=== PATIENT | male | born 1950 | race Caucasian/White ===

== ENCOUNTER 2022-01-18 16:01 | Emergency (ER) | payer OTHER ==
[~2022-01-18] VITALS: Ht 182.9 cm; Wt 77.1 kg
[~2022-01-18 16:01] MED LIST: AMOX500 PO; CEPH500 PO; CRUTCH4 USE; ERGO400 PO; HYDACE5 PO; MULVITMINF PO; OXYACE5T PO; OXYC5 PO; SULTRIDS PO
== END 2022-01-18 17:15 | disposition home or self-care (01) ==
LOC: ER 16:01
DX: M79.672 Pain in left foot (principal); F17.200 Nicotine dependence, unspecified, uncomplicated
CPT/HCPCS: 73620; 99283-25

== ENCOUNTER 2022-09-29 22:02 | Inpatient (IN) | payer OTHER ==
[~2022-09-29] VITALS: Ht 182.9 cm; Wt 69.5 kg
[2022-09-30 01:37] LABS: Albumin, Blood 2.1 g/dL (3.4-5.0); Albumin/Globulin Ratio 0.6 (0.8-1.8); Bilirubin, Total 0.7 mg/dL (0.1-1.0); Bun/Creatinine Ratio 15.1 (12.0-20.0); Calcium, Blood 7.8 mg/dL (8.5-10.1); Creatinine, Blood 0.99 mg/dL (0.60-1.20); Globulin, Blood 3.6 g/dL (2.2-4.0); Potassium, Blood 4.2 mmol/L (3.5-5.5); Total Protein, Blood 5.7 g/dL (6.4-8.2)
[2022-09-30 02:36] LABS: BASOPHILS ABSOLUTE AUTO 0.03 K/mm3 (0.00-0.23); BASOPHILS PERCENT AUTO 1 % (0-2); EOSINOPHILS ABSOLUTE AUTO 0.23 K/mm3 (0.00-0.68); EOSINOPHILS PERCENT AUTO 4 % (0-6); Hematocrit 23.6 % (37.0-53.0); Hemoglobin 7.5 g/dL (13.5-17.5); IMMATURE GRAN ABSOLUTE AUTO 0.02 K/mm3 (0.00-0.10); IMMATURE GRAN PERCENT AUTO 0 % (0-1); LYMPHOCYTES ABSOLUTE AUTO 0.87 K/mm3 (0.84-5.20); LYMPHOCYTES PERCENT AUTO 15 % (21-46); MONOCYTES ABSOLUTE AUTO 0.89 K/mm3 (0.16-1.47); MONOCYTES PERCENT AUTO 15 % (4-13); Mean Corpuscular HGB 32.1 pg (26.0-34.0); Mean Corpuscular HGB Conc 31.8 g/dL (31.5-36.5); Mean Corpuscular Volume 101 fL (80-100); Mean Platelet Volume 10.3 fL (9.1-12.4); NEUTROPHILS ABSOLUTE AUTO 3.88 K/mm3 (1.96-9.15); NEUTROPHILS PERCENT AUTO 66 % (41-73); Platelet Count 141 K/mm3 (150-400); RDW Coefficient Variation 15.1 % (11.7-14.2); RDW Standard Deviation 55.8 fL (35.1-46.3); Red Blood Cell Count 2.34 M/mm3 (4.30-5.90); White Blood Cell Count 5.92 K/mm3 (4.00-11.30)
[2022-09-30 06:25] LABS: International Normalized Ratio 1.31; Prothrombin Time Results 13.5 Sec (9.7-11.5)
[2022-09-30 14:27] LABS: Automated BF WBC Count 0.146 K/mm3 (0-999)
[2022-09-30 14:33] LABS: Body Fluid WBC Count 146 /mm3 (0-999)
[2022-09-30 15:49] LABS: RBC Count, Body Fluid 55 /mm3 (0-0)
[2022-09-30 15:52] LABS: Appearance, Body Fluid Clear (Clear); Color, Body Fluid L Yellow (None-Yellow)
[2022-09-30 16:57] LABS: Total Cell Count, Body Fluid 100
--- NOTE | 2022-09-30 19:18 | NUR ---
ADMIT NOTE: PT A&O X4, PLEASANT, COOPERATIVE. PT TRANSFERED FROM ED VIA GURNEY. PT TRANSFERED INTO BED SBA. PT ORIENTATED TO ROOM, BROAD, STAFF, AND CALL LIGHT. PT ABLE TO GIVE MEDICAL HX, AND MEDICATION REC. PT CONTIENT OF URINE AND BM. PT ATE AND DRANK MEAL WITHOUT DIFFICULTY. PT IN BED WITH CALL LIGHT WITHIN REACH.
[2022-10-01 06:28] LABS: BASOPHILS ABSOLUTE AUTO 0.03 K/mm3 (0.00-0.23); BASOPHILS PERCENT AUTO 1 % (0-2); EOSINOPHILS ABSOLUTE AUTO 0.24 K/mm3 (0.00-0.68); EOSINOPHILS PERCENT AUTO 6 % (0-6); Hematocrit 20.7 % (37.0-53.0); Hemoglobin 6.7 g/dL (13.5-17.5); IMMATURE GRAN ABSOLUTE AUTO 0.01 K/mm3 (0.00-0.10); IMMATURE GRAN PERCENT AUTO 0 % (0-1); LYMPHOCYTES ABSOLUTE AUTO 0.97 K/mm3 (0.84-5.20); LYMPHOCYTES PERCENT AUTO 23 % (21-46); MONOCYTES ABSOLUTE AUTO 0.64 K/mm3 (0.16-1.47); MONOCYTES PERCENT AUTO 15 % (4-13); Mean Corpuscular HGB 31.9 pg (26.0-34.0); Mean Corpuscular HGB Conc 32.4 g/dL (31.5-36.5); Mean Corpuscular Volume 99 fL (80-100); Mean Platelet Volume 10.4 fL (9.1-12.4); NEUTROPHILS ABSOLUTE AUTO 2.42 K/mm3 (1.96-9.15); NEUTROPHILS PERCENT AUTO 56 % (41-73); Platelet Count 104 K/mm3 (150-400); RDW Coefficient Variation 15.3 % (11.7-14.2); RDW Standard Deviation 56.5 fL (35.1-46.3); White Blood Cell Count 4.31 K/mm3 (4.00-11.30)
--- NOTE | 2022-10-01 06:44 | NUR ---
SUMMARY PT HAD CONTINUED ISSUES WITH LEG CRAMPS DURING THE SHIFT. PT REPORTED SIGNIFCANT ABD DISCOMFORT RELIEF. PT HAS BEEN ABLE TO SLEEP THIS SHIFT. PT PARACENTISIS SITE C/D/I. PT WAS FOUND TO HAVE A HGB <[address] NAIK ORDERED 1 UNIT PRBC FOR THIS AM. PT CURRENTLY SLEEPING IN NO DISTRESS. CALL LIGHT IN REACH.
[2022-10-01 06:55] LABS: Albumin/Globulin Ratio 0.7 (0.8-1.8); Bilirubin, Total 0.6 mg/dL (0.1-1.0); Bun/Creatinine Ratio 15.4 (12.0-20.0); Calcium, Blood 7.4 mg/dL (8.5-10.1); Creatinine, Blood 0.98 mg/dL (0.60-1.20); Globulin, Blood 2.7 g/dL (2.2-4.0); Magnesium, Blood 1.7 mg/dL (1.6-2.4); Potassium, Blood 3.6 mmol/L (3.5-5.5); Total Protein, Blood 4.7 g/dL (6.4-8.2)
--- NOTE | 2022-10-01 14:27 | NUR ---
SHIFT SUMMARY PT RESTING QUIETLY AT START OF SHIFT, NOT WANTING TO BE WOKE UP. LAB HERE FOR TYPE AND CROSS, PT NEEDING 1 UNIT PRBC'S. PT REFUSING LAB DRAW. PT UP TO EOB FOR BREAKFAST. DR RODRIGUEZ IN TO SEE PT AND DISCUSS PLAN OF CARE. DR RODRIGUEZ UPDATED ON PT'S REFUSAL; DR RODRIGUEZ ATTEMPTED TO EDU PT ON PLAN OF CARE AND NEEDED LABS. PT LATER AGREED TO TYPE AND CROSS AND TO RECEIVE BLOOD; CONSENT SIGNED, BUT PT REFUSING TO HAVE LAB F/U AFTER BLOOD. PT UP TO SHOWER THIS AM; LINENS CHANGED. PT WANTING TO TAKE A NAP AND NOT WANTING TO BE BOTHERED. RESTING QUIETLY, CALL LT IN REACH.
[2022-10-01 17:39] LABS: Hematocrit 24.4 % (37.0-53.0)
--- NOTE | 2022-10-02 05:02 | NUR ---
SUMMARY: NO ACUTE EVENTS OVERNIGHT. PATIENT INDEPENDENT WITH WALKER IN ROOM. PATIENT COMPLIANT WITH CARE. TOOK MEDS BEFORE BED AND SLEPT THROUGHOUT NIGHT. VSS. HGB STABLE AT THIS TIME. COMPLAINED OF ABDOMINAL PAIN THIS MORNING GAVE PRN TYLENOL FOR FEVER AND FENT FOR SINDHU. ABDOMEN IS DISTENDED.
[2022-10-02 06:22] LABS: Hematocrit 22.4 % (37.0-53.0); Hemoglobin 7.1 g/dL (13.5-17.5); Mean Corpuscular HGB 30.6 pg (26.0-34.0); Mean Corpuscular HGB Conc 31.7 g/dL (31.5-36.5); Mean Corpuscular Volume 97 fL (80-100); Mean Platelet Volume 10.4 fL (9.1-12.4); Platelet Count 97 K/mm3 (150-400); RDW Coefficient Variation 15.9 % (11.7-14.2); RDW Standard Deviation 55.8 fL (35.1-46.3); Red Blood Cell Count 2.32 M/mm3 (4.30-5.90); White Blood Cell Count 4.07 K/mm3 (4.00-11.30)
[2022-10-02 06:49] LABS: Albumin, Blood 1.9 g/dL (3.4-5.0); Anion Gap 5 mmol/L (6-16); Blood Urea Nitrogen 13 mg/dL (8-24); Bun/Creatinine Ratio 13.1 (12.0-20.0); CO2, Blood 25 mmol/L (21-32); Calcium, Blood 7.4 mg/dL (8.5-10.1); Chloride, Blood 108 mmol/L (98-108); Creatinine, Blood 0.99 mg/dL (0.60-1.20); Glomerular Filtration Rate 80 (60-); Glucose, Blood 133 mg/dL (70-99); Magnesium, Blood 1.5 mg/dL (1.6-2.4); Potassium, Blood 3.6 mmol/L (3.5-5.5); Sodium, Blood 138 mmol/L (136-145)
--- NOTE | 2022-10-02 18:09 | NUR ---
SHIFT SUMMARY PT AxOx3-4. COOPERATIVE WITH CARE, BUT EASILY IRRITABLE. PT REPORTS PAIN CONSISTENTLY AT 10-12 OUT OF 10 IN ABDOMEN. PT IS MEDICATED PER EMAR. PT REPORTS NO BM FOR SEVERAL DAYS. BOWEL CARE INITIATED WITH NO RESULT BY END OF DAY SHIFT. PT EATING WELL/HAS GOOD APPETITE. GI SPECIALIST IN FOR CONSULT THIS EVENING. PLAN IS FOR PATIENT TO HAVE AN EGD TOMORROW. PT WILL BE NPO AFTER A CLEAR LIQUID BREAKFAST. CONSULTING MANAGER NOTIFIED. VITALS REVIEWED. PT IS CURRENTLY RESTING IN BED WITH CALL LIGHT IN REACH. DENIES ANY NEEDS AT THIS TIME.
--- NOTE | 2022-10-03 04:47 | NUR ---
SUMMARY: PATIENT DID WELL THIS EVENING. NO ACUTE EVENTS. SLIGHT FEVER. PRN TYLENOL GIVEN. INCREASING PAIN TO PATIENTS VERY DISTENDED ABDOMEN. MEDICATED PER EMAR. PRNS GIVEN FOR CONSTIPATION. PATIENT AOX4 INDEPENDENT IN ROOM.
[2022-10-03 10:10] LABS: Hematocrit 24.8 % (37.0-53.0); Hemoglobin 8.1 g/dL (13.5-17.5)
[2022-10-03 10:19] LABS: Bun/Creatinine Ratio 14.7 (12.0-20.0); Calcium, Blood 7.6 mg/dL (8.5-10.1); Creatinine, Blood 1.02 mg/dL (0.60-1.20); Magnesium, Blood 1.8 mg/dL (1.6-2.4); Potassium, Blood 3.7 mmol/L (3.5-5.5)
--- NOTE | 2022-10-03 17:43 | NUR ---
PT TO OR FOR PROCEDURE @ 5639
--- NOTE | 2022-10-03 17:44 | NUR ---
SHIFT SUMMARY- PT RESTING IN ROOM. INDEPENDANT. PT NPO AFTER BREAKFAST FOR PROCEDURE. VSS. C/O PAIN X2, MEDICATED PER EMAR. FAMILY AT BEDSIDE. NO ACUTE CHANGES. PT TO PROCEDURE @1740 APROX. WHEN RETURN TO ROOM, WILL CONTINUE TO MONITOR. CALL LIGHT IN REACH.
--- NOTE | 2022-10-03 18:28 | NUR ---
10/03/22 1828 Zackery Crain HISTORY, CHART, MEDICATIONS AND ALLERGIES REVIEWED BEFORE START OF PROCEDURE. PATIENT CONFIRMS NPO STATUS AND AGREES WITH SCHEDULED PROCEDURE. 3-LEAD EKG REVIEWED WITH PHYSICIAN PRIOR TO START OF PROCEDURE. MONITOR INTACT WITH CONTINUOUS PULSE OXIMETRY,CAPNOGRAPHY, 3-LEAD EKG, INTERMITTENT BP. SUPPLEMENTAL O2 TO BE TITRATED THROUGHOUT PROCEDURE TO MAINTAIN O2 SATURATION ABOVE 90%. PATIENT DETERMINED TO BE ASA APPROPRIATE FOR PROPOFOL SEDATION PRIOR TO START OF PROCEDURE BY DR. CORTÉS.
--- NOTE | 2022-10-04 03:33 | NUR ---
ORDER MANAGEMENT SPECIALIST SUMMARY THE PATIENT IS A 71 YEAR-OLD MALE WITH A DIAGNOSIS OF ASCITIES. VSS. RR EVEN AND UNLABORED ON RA. PATIENT DOES REPORT EXERTIONAL DYSPNEA. A&OX4. PATIENT EFFECTIVELY COMMUNICATES NEEDS. EGD PERFORMED ON 10/03. THE PATIENT HAS BEEN NPO AFTER 0000 DUE TO A LIVER BIOPSY SCHEDULED FOR TODAY, 10/04. PAIN FREQUENTLY ASSESSED AND MEDICATED PER EMAR. NO ACUTE CONCERNS AT THIS TIME. THIS RN WILL CONTINUE TO CLOSELY MONITOR. CALL LIGHT WITHIN REACH. BED LOW AND LOCKED. STOOL SAMPLE PENDING COLLECTION AT THIS TIME.
--- NOTE | 2022-10-04 05:11 | NUR ---
PATIENT PRESENTS WITH A [address] FOSTER NOTIFIED OF THIS. DR. MIRANDA ALSO INFORMED OF PATIENT'S NPO STATUS RELATED TO PENDING LIVER BIOPSY TODAY. AN ORDER FOR APAP 650MG Q6 PRN PO OBTAINED AND ADMINISTERED PER EMAR. PATIENT IS CONVERSATIONAL. NO FURTHER SIGNS OR SYMPTOMS AT THIS TIME. THIS RN WILL CONTINUE TO CLOSELY MONITOR.
--- NOTE | 2022-10-04 06:30 | NUR ---
THE PATIENT PRESENTS WITH PROGRESSIVE AGITATION REGARDING BEING NPO. PATIENT'S LAST PO INTAKE WAS @ ~2345, JUST BEFORE 0000. PATIENT EDUCATED ON REASON FOR NPO STATUS. THIS RN WILL CONTINUE TO MONITOR.
[2022-10-04 06:59] LABS: International Normalized Ratio 1.31; Prothrombin Time Results 13.5 Sec (9.7-11.5)
[2022-10-04 14:15] LABS: Influenza B, PCR NEGATIVE (NEGATIVE); Resp Syncytial Virus, PCR NEGATIVE (NEGATIVE); SARS-Cov-2 (COVID-19) PCR, MMC NEGATIVE (NEGATIVE)
[2022-10-04 14:16] LABS: Influenza A, PCR POSITIVE (NEGATIVE)
--- NOTE | 2022-10-04 17:38 | NUR ---
SHIFT SUMMARY- PT ON RA. C/O PAIN MEDICATED PER EMAR. APPETITE GOOD. INDEPENDANT IN ROOM. NO ACUTE CHANGES THIS SHIFT. PT COMPLIANT WITH ALL CARE. PT DID TEST POSTIVE FOR INFLUENZA ISO PROTOCAL IN PLACE. WILL CONTINUE TO MONITOR. CALL LIGHT IN REACH.
--- NOTE | 2022-10-04 17:44 | NUR ---
NOTIFIED OF POSITVE SEROLOGY TEST.
--- NOTE | 2022-10-05 06:33 | NUR ---
ELSIE RAY WAS EXTREMELY PAINFUL AT THE START OF THE SHIFT. LUNG SOUNDS UNCHANGED WERE COARSE IN THE UPPER LOBES. ABD VERY TENDER AND GUARDED TO ANY PALPATION. VERY PLEASANT AND COOPERATIVE WITH CARE. ORDER OBTAINED FOR OXYCODONE WHICH WAS MUCH APPRECIATED BY THE PATIENT OVER THE IV FENTANYL.
[2022-10-05 10:24] LABS: BASOPHILS ABSOLUTE AUTO 0.02 K/mm3 (0.00-0.23); BASOPHILS PERCENT AUTO 1 % (0-2); EOSINOPHILS ABSOLUTE AUTO 0.13 K/mm3 (0.00-0.68); EOSINOPHILS PERCENT AUTO 5 % (0-6); Hematocrit 27.7 % (37.0-53.0); Hemoglobin 8.7 g/dL (13.5-17.5); IMMATURE GRAN PERCENT AUTO 0 % (0-1); LYMPHOCYTES ABSOLUTE AUTO 0.82 K/mm3 (0.84-5.20); LYMPHOCYTES PERCENT AUTO 34 % (21-46); MONOCYTES ABSOLUTE AUTO 0.31 K/mm3 (0.16-1.47); MONOCYTES PERCENT AUTO 13 % (4-13); Mean Corpuscular HGB 30.9 pg (26.0-34.0); Mean Corpuscular HGB Conc 31.4 g/dL (31.5-36.5); Mean Corpuscular Volume 98 fL (80-100); NEUTROPHILS ABSOLUTE AUTO 1.17 K/mm3 (1.96-9.15); NEUTROPHILS PERCENT AUTO 48 % (41-73); Platelet Count 80 K/mm3 (150-400); RDW Coefficient Variation 15.9 % (11.7-14.2); RDW Standard Deviation 57.2 fL (35.1-46.3); Red Blood Cell Count 2.82 M/mm3 (4.30-5.90); White Blood Cell Count 2.45 K/mm3 (4.00-11.30)
[2022-10-05 10:46] LABS: Albumin/Globulin Ratio 0.6 (0.8-1.8); Bilirubin, Total 0.4 mg/dL (0.1-1.0); Bun/Creatinine Ratio 14.5 (12.0-20.0); Calcium, Blood 7.4 mg/dL (8.5-10.1); Creatinine, Blood 1.1 mg/dL (0.60-1.20); Globulin, Blood 3.2 g/dL (2.2-4.0); Total Protein, Blood 5.2 g/dL (6.4-8.2)
--- NOTE | 2022-10-05 17:51 | NUR ---
PT HAS BEEN SLEEPING MUCH OF DAY. DID WALK TO DOOR FOR QUESTIONS TODAY. DID TAKE SHOWER TODAY. NO NEW CONCERNS NOTED. TEMP DOWN SOME THIS SUSAN. 99.8. PAIN MANAGED WITH AVAIL MEDS. ONLY REQUESTED PAIN MED ONCE TODAY. BED IN LOW POSITIOIN, CALL LITE IN REACH, CALLS APPROP
--- NOTE | 2022-10-06 03:19 | NUR ---
SHIFT SUMMARY NO OVERNIGHT EVENTS. PT REPORTING ABDOMINAL AND NEW LEG PAIN THIS SHIFT, SEE MAR. PER PT, HAD BM BUT DID NOT SAVE IT. EDUCATED ABOUT STOOL SAMPLE. PT ORIENTED X3, FORGETFUL AT TIMES. AMBULATING INDEPENDENTLY IN ROOM. CALL LIGHT IN REACH, ABLE TO MAKE NEEDS KNOWN.
[2022-10-06 07:52] LABS: BASOPHILS ABSOLUTE AUTO 0.01 K/mm3 (0.00-0.23); BASOPHILS PERCENT AUTO 1 % (0-2); EOSINOPHILS ABSOLUTE AUTO 0.17 K/mm3 (0.00-0.68); EOSINOPHILS PERCENT AUTO 8 % (0-6); Hematocrit 25.4 % (37.0-53.0); Hemoglobin 7.8 g/dL (13.5-17.5); IMMATURE GRAN PERCENT AUTO 0 % (0-1); LYMPHOCYTES ABSOLUTE AUTO 0.88 K/mm3 (0.84-5.20); LYMPHOCYTES PERCENT AUTO 40 % (21-46); MONOCYTES ABSOLUTE AUTO 0.35 K/mm3 (0.16-1.47); MONOCYTES PERCENT AUTO 16 % (4-13); Mean Corpuscular HGB 30.2 pg (26.0-34.0); Mean Corpuscular HGB Conc 30.7 g/dL (31.5-36.5); Mean Corpuscular Volume 98 fL (80-100); Mean Platelet Volume 11.4 fL (9.1-12.4); NEUTROPHILS ABSOLUTE AUTO 0.77 K/mm3 (1.96-9.15); NEUTROPHILS PERCENT AUTO 35 % (41-73); Platelet Count 72 K/mm3 (150-400); RDW Coefficient Variation 15.8 % (11.7-14.2); RDW Standard Deviation 57.2 fL (35.1-46.3); Red Blood Cell Count 2.58 M/mm3 (4.30-5.90); White Blood Cell Count 2.18 K/mm3 (4.00-11.30)
[2022-10-06 08:08] LABS: Albumin, Blood 1.9 g/dL (3.4-5.0); Albumin/Globulin Ratio 0.7 (0.8-1.8); Bilirubin, Total 0.3 mg/dL (0.1-1.0); Bun/Creatinine Ratio 17.2 (12.0-20.0); Calcium, Blood 7.2 mg/dL (8.5-10.1); Creatinine, Blood 1.16 mg/dL (0.60-1.20); Globulin, Blood 2.9 g/dL (2.2-4.0); Potassium, Blood 4.2 mmol/L (3.5-5.5); Total Protein, Blood 4.8 g/dL (6.4-8.2)
--- NOTE | 2022-10-06 15:43 | NUR ---
SPOKE WITH PATIENT'S BROTHER RENY BY PHONE X 3 TODAY. RENY EXPRESSED CONCERN THAT ELSIE WILL BE DISCHARGED BACK TO HIS PREVIOUS LIVING SITUATION, WHICH RENY STATED IS FILTHY AND UNSAFE. RENY ASKED ABOUT HAVING HIS BROTHER GO TO SNF OR DETENTION; THIS AUTHOR EXPLAINED THAT ELSIE DOES NOT QUALIFY HE IS INDEPENDENT WITH AMBULATION AND ADL'S. THEN RENY ASKED ABOUT HAVING HELP COME TO THE HOME TO HELP ELSIE WITH GOING TO DR'S APPOINTMENTS AND OTHER BASIC THINGS. THIS AUTHOR CONFERRED WITH CAR SEAT COVERER TO SEE WHAT COULD BE DONE TO HELP, BUT PATIENT WOULD HAVE TO SELF PAY OR POSSIBLY HAVE TO GET SOME [facility]OUGH [facility]. DURING LAST PHONE CALL, RENY STATED "SO YOU'RE JUST GOING TO SEND HIM HOME TO ." EXPLAINED TO RENY THAT THERE IS ONLY SO MUCH AND HOSPITAL CAN DO AND THAT MOST OF THE TIME CONTINUING CARE HAS TO BE MANAGED BY FAMILY IF PATIENTS DON'T HAVE FINANCIAL RESOURCES. RENY TOOK MY NAME AND STATED HE WOULD LOOK INTO THIS FURTHER.
--- NOTE | 2022-10-06 17:20 | NUR ---
SHIFT SUMMARY: PLACED IN NEUTROPENIC PRECAUTIONS. C/O PAIN IN BILATERAL FEET; MEDICATED PER EMAR WITH ADEQUATE RELIEF. USING BR, INDEPENDENT IN ROOM. FORGETFUL. REFUSING SCD'S. ABD SLIGHTLY DISTENDED, BS ACTIVE X 4, DENIED N/V/D. SEVERE HEARING LOSS MAKES EDUCATION DIFFICULT. BROTHER RENY WANTS PT PLACED IN RESIDENTIAL OR SNF.
[2022-10-06 19:11] LABS: HBSAG SCREEN Negative (Negative); HCV AB >11.0 (0.0-0.9); HCV LOG10 5.641 (.); HEP A AB, IGM Negative (Negative); HEP B CORE AB, IGM Negative (Negative); HEPATITIS C QUANTITATION 438000 IU/mL (.)
--- NOTE | 2022-10-07 05:17 | NUR ---
SHIFT SUMMARY: PT A/Ox4 and call light appropriate. Pt denied nausea, dizziness, SOB. He did state he had pain. PRN oxy given. He is able to ambualte independant in his room. His lungs sound coarse with rhonci. No acute changes this shift.
[2022-10-07 10:54] LABS: Hematocrit 26.2 % (37.0-53.0); Hemoglobin 8.3 g/dL (13.5-17.5); Mean Corpuscular HGB 31.3 pg (26.0-34.0); Mean Corpuscular HGB Conc 31.7 g/dL (31.5-36.5); Mean Corpuscular Volume 99 fL (80-100); Mean Platelet Volume 11.1 fL (9.1-12.4); Platelet Count 64 K/mm3 (150-400); RDW Coefficient Variation 15.9 % (11.7-14.2); RDW Standard Deviation 58.1 fL (35.1-46.3); Red Blood Cell Count 2.65 M/mm3 (4.30-5.90); White Blood Cell Count 3.41 K/mm3 (4.00-11.30)
[2022-10-07 11:12] LABS: Bun/Creatinine Ratio 14.8 (12.0-20.0); Calcium, Blood 7.6 mg/dL (8.5-10.1); Creatinine, Blood 1.15 mg/dL (0.60-1.20)
[2022-10-07 11:22] LABS: BAND PERCENT MAN 1 % (0-8); BASOPHILS PERCENT MAN 0 % (0-2); EOSINOPHILS ABSOLUTE MAN 0.23 K/mm3 (0.00-0.68); EOSINOPHILS PERCENT MAN 7 % (0-6); LYMPHOCYTES ABSOLUTE MAN 0.75 K/mm3 (0.84-5.20); LYMPHOCYTES PERCENT MAN 22 % (21-46); MONOCYTES ABSOLUTE MAN 0.27 K/mm3 (0.16-1.47); MONOCYTES PERCENT MAN 8 % (4-13); NEUTROPHILS ABSOLUTE MAN 2.14 K/mm3 (1.96-9.15); SEG NEUTROPHILS PERCENT MAN 62 % (41-73); TOTAL CELLS COUNTED 100
--- NOTE | 2022-10-07 16:21 | NUR ---
SHIFT SUMMARY: NO ACUTE EVENTS. C/O PAIN IN BILATERAL FEET, MEDICATED PER EMAR. REFUSING SCD'S D/T PAIN. INDEPENDENT IN ROOM. TOLERATING PO INTAKE, MODERATE APPETITE. NO BM TODAY. GAVE TELEPHONE UPDATE TO PT'S BROTHER RENY THIS AFTERNOON.
[2022-10-07 17:07] LABS: HCV LOG10 5.855 (.); HEPATITIS C GENOTYPE 3 (.); HEPATITIS C QUANTITATION 716000 IU/mL (.)
--- NOTE | 2022-10-08 05:12 | NUR ---
SHIFT SUMMARY: Pt A/Ox2. This shift pt was irritable and confused. He pulled his IV out on prior shift. Director Of Rehabilitation attempted to put a new IV but pt refused. He was explained to the importance of the IV for his IV abx and protonix. He stated he wanted to wait till morning. He denies SOB, nausea, dizziness, numbness/tingling. He rated mild pain in his abdomen. He is able to ambulate in his room independantly.
[2022-10-08 06:41] LABS: Hemoglobin 7.6 g/dL (13.5-17.5); Mean Corpuscular HGB 30.9 pg (26.0-34.0); Mean Corpuscular HGB Conc 31.7 g/dL (31.5-36.5); Mean Corpuscular Volume 98 fL (80-100); Mean Platelet Volume 11.3 fL (9.1-12.4); Platelet Count 63 K/mm3 (150-400); RDW Coefficient Variation 15.8 % (11.7-14.2); RDW Standard Deviation 57.1 fL (35.1-46.3); Red Blood Cell Count 2.46 M/mm3 (4.30-5.90); White Blood Cell Count 2.91 K/mm3 (4.00-11.30)
[2022-10-08 07:12] LABS: Calcium, Blood 7.7 mg/dL (8.5-10.1); Creatinine, Blood 1.11 mg/dL (0.60-1.20); Potassium, Blood 3.9 mmol/L (3.5-5.5)
[2022-10-08 07:36] LABS: TOTAL CELLS COUNTED 100
[2022-10-08 07:41] LABS: SEG NEUTROPHILS PERCENT MAN 55 % (41-73)
[2022-10-08 07:42] LABS: BAND PERCENT MAN 1 % (0-8); BASOPHILS ABSOLUTE MAN 0.05 K/mm3 (0.00-0.23); BASOPHILS PERCENT MAN 2 % (0-2); EOSINOPHILS ABSOLUTE MAN 0.08 K/mm3 (0.00-0.68); EOSINOPHILS PERCENT MAN 3 % (0-6); LYMPHOCYTES % ATYPICAL MANUAL 1 % (0-0); LYMPHOCYTES ABSOLUTE MAN 0.96 K/mm3 (0.84-5.20); LYMPHOCYTES PERCENT MAN 32 % (21-46); MONOCYTES ABSOLUTE MAN 0.17 K/mm3 (0.16-1.47); MONOCYTES PERCENT MAN 6 % (4-13); NEUTROPHILS ABSOLUTE MAN 1.62 K/mm3 (1.96-9.15)
[2022-10-08 08:13] LABS: METAMYELOCYTE PERCENT MAN 0 % (0-0)
--- NOTE | 2022-10-08 17:19 | NUR ---
SHIFT SUMMARY: AT 1600, PT C/O LOWER ABD DISCOMFORT; ABD IS MILDLY DISTENDED AND FIRM, IS PASSING GAS, LBM 10/07 PER PT REPORT. GAVE PAIN MEDICATIONS WITH BOWEL MEDS WHICH PROVIDED SOME RELIEF. EDUCATED PT TO REPORT INCREASING PAIN, N/V/D; VERBALIZED UNDERSTANDING. ALSO EDUCATED PT NOT TO CONSUME EXCESSIVE COFFEE AND SODA D/T HIGH ACID CONTENT. TOLERATING PO INTAKE. SLEPT MOST OF THE DAY.
--- NOTE | 2022-10-09 06:42 | NUR ---
CELLAR HAND SUMMARY: A&Ox3-4 WITH EPISODIC CONFUSION. CALLS APPROPRIATELY AND IS ABLE TO COMMUNICATE NEEDS EFFECTIVELY. SLEPT MAJORITY OF SHIFT. INDEPENDENT WITHIN ROOM AND AMBULATES TO BATHROOM WITHOUT DIFFICULTY. REFUSES SCDs. VSS. TAKING PO MEDS WITHOUT DIFFICULTY. ANTICIPATE DC HOME TODAY. WILL REPORT TO ONCOMING RN.
[2022-10-09 08:23] LABS: Hematocrit 26.1 % (37.0-53.0); Hemoglobin 8.2 g/dL (13.5-17.5); Mean Corpuscular HGB 31.1 pg (26.0-34.0); Mean Corpuscular HGB Conc 31.4 g/dL (31.5-36.5); Mean Corpuscular Volume 99 fL (80-100); Mean Platelet Volume 10.3 fL (9.1-12.4); Platelet Count 80 K/mm3 (150-400); RDW Coefficient Variation 15.8 % (11.7-14.2); RDW Standard Deviation 57.3 fL (35.1-46.3); Red Blood Cell Count 2.64 M/mm3 (4.30-5.90); White Blood Cell Count 3.24 K/mm3 (4.00-11.30)
[2022-10-09 08:36] LABS: Albumin/Globulin Ratio 0.6 (0.8-1.8); Bilirubin, Total 0.4 mg/dL (0.1-1.0); Bun/Creatinine Ratio 15.7 (12.0-20.0); Calcium, Blood 7.8 mg/dL (8.5-10.1); Creatinine, Blood 0.95 mg/dL (0.60-1.20); Globulin, Blood 3.2 g/dL (2.2-4.0); Potassium, Blood 4.2 mmol/L (3.5-5.5); Total Protein, Blood 5.2 g/dL (6.4-8.2)
[2022-10-09] MEDS ORDERED: DOCUZEN 8.6-501 EACH PO (12:37)
[2022-10-09] MEDS ORDERED: FURO40 PO (12:37)
[2022-10-09] MEDS ORDERED: PANT40 PO (12:38)
[2022-10-09] MEDS ORDERED: SPIR50 PO (12:39)
--- NOTE | 2022-10-09 14:00 | NUR ---
PT DISCHARGED 1340 WITH INSTURCTIONS TO PT AND BROTHER AND SISTER JOSÉ LUIS WHO ARE HIS CAREGIVERS. PLAN FOR PT TO SET UP CONTACT FOR NEW PCP, APT SET FOR Sep. WILL OBTAIN REFERAL FROM PCP TO SET UP LIVER BIOPSY THROUGH RADIOLOGY. PT SENT HOME WITH BELONGINGS. WHEELCHAIR TRANSPORT OUT TO PRIVATE CAR TO TAKE PT HOME.
== END 2022-10-09 13:42 | disposition home or self-care (01) | DRG 432 ==
LOC: ER 22:02 → ERHOLD 22:03 → MEDS 22:03
PROVIDERS: Family Medicine; Internal Medicine; Student in an Organized Health Care Education/Training Program; ADMIT Internal Medicine
PROC: 0W9G3ZZ Drainage of Peritoneal Cavity, Percutaneous Approach (ICD-10-PCS; 2022-09-30)
PROC: 30233N1 Transfusion of Nonautologous Red Blood Cells into Peripheral Vein, Percutaneous Approach (ICD-10-PCS; principal; 2022-10-01)
PROC: 0DB98ZX Excision of Duodenum, Via Natural or Artificial Opening Endoscopic, Diagnostic (ICD-10-PCS; 2022-10-03)
DX: K70.31 Alcoholic cirrhosis of liver with ascites (principal); K65.2 Spontaneous bacterial peritonitis; D61.818 Other pancytopenia; D62 Acute posthemorrhagic anemia; J91.8 Pleural effusion in other conditions classified elsewhere; J98.11 Atelectasis; K76.6 Portal hypertension; Z28.21 Immunization not carried out because of patient refusal; Z20.822 Contact with and (suspected) exposure to COVID-19; B18.2 Chronic viral hepatitis C; J44.9 Chronic obstructive pulmonary disease, unspecified; H91.90 Unspecified hearing loss, unspecified ear; F17.210 Nicotine dependence, cigarettes, uncomplicated; D63.8 Anemia in other chronic diseases classified elsewhere; J10.1 Influenza due to other identified influenza virus with other respiratory manifestations; R16.0 Hepatomegaly, not elsewhere classified; G47.00 Insomnia, unspecified; K20.90 Esophagitis, unspecified without bleeding; K26.9 Duodenal ulcer, unspecified as acute or chronic, without hemorrhage or perforation; K31.89 Other diseases of stomach and duodenum
CPT/HCPCS: 0241U; 36415; 36430; 49083; 74177; 74183; 80048; 80053; 80069; 80074; 82105; 82140; 83690; 83735; 84484; 85014; 85018; 85025; 85027; 85610; 85730; 86317; 86850; 86900; 86901; 86923; 87070; 87205; 87522; 87902; 88108; 88305; 89051; 93005; 93010; 96374-59; 96375; 96376; 99285-25; A9270; A9581; C9113; J0696; J1940; J2704; J3010; J3475; J7050; J7120; P9016; P9047; Q9967

== ENCOUNTER 2022-11-20 15:17 | Inpatient (IN) | payer OTHER, MEDICARE ==
[~2022-11-20] VITALS: Ht 177.8 cm; Wt 57.0 kg
[~2022-11-20 15:17] MED LIST changes: +ALDACTONE100 MG PO; +DOCUZEN 8.6-501 EACH PO; +FURO40 PO; +PANT40 PO
[2022-11-20 17:46] LABS: BASOPHILS ABSOLUTE AUTO 0.06 K/mm3 (0.00-0.23); BASOPHILS PERCENT AUTO 1 % (0-2); EOSINOPHILS ABSOLUTE AUTO 0.13 K/mm3 (0.00-0.68); EOSINOPHILS PERCENT AUTO 2 % (0-6); Hematocrit 32.7 % (37.0-53.0); Hemoglobin 10.4 g/dL (13.5-17.5); IMMATURE GRAN ABSOLUTE AUTO 0.02 K/mm3 (0.00-0.10); IMMATURE GRAN PERCENT AUTO 0 % (0-1); LYMPHOCYTES ABSOLUTE AUTO 1.69 K/mm3 (0.84-5.20); LYMPHOCYTES PERCENT AUTO 26 % (21-46); MONOCYTES ABSOLUTE AUTO 0.87 K/mm3 (0.16-1.47); MONOCYTES PERCENT AUTO 14 % (4-13); Mean Corpuscular HGB 28.5 pg (26.0-34.0); Mean Corpuscular HGB Conc 31.8 g/dL (31.5-36.5); Mean Corpuscular Volume 90 fL (80-100); Mean Platelet Volume 9.8 fL (9.1-12.4); NEUTROPHILS ABSOLUTE AUTO 3.67 K/mm3 (1.96-9.15); NEUTROPHILS PERCENT AUTO 57 % (41-73); Platelet Count 178 K/mm3 (150-400); RDW Coefficient Variation 20.1 % (11.7-14.2); RDW Standard Deviation 66.9 fL (35.1-46.3); Red Blood Cell Count 3.65 M/mm3 (4.30-5.90); White Blood Cell Count 6.44 K/mm3 (4.00-11.30)
[2022-11-20 17:59] LABS: Source, Urine Straight Cath
[2022-11-20 18:05] LABS: Appearance, Urine Clear (Clear); Bilirubin, Urine Neg (Neg); Blood, Urine Neg (Neg); Color, Urine Yellow (P-Yellow); Glucose Qualitative, Urine Neg (Neg); Ketones, Urine Neg (Neg); Leukocyte Esterase, Urine Neg (Neg); Nitrite, Urine Neg (Neg); Protein, Urine Neg (Neg); Specific Gravity, Urine 1.015 (1.003-1.022); Urobilinogen, Urine NORM (Normal); pH, Urine 6.5 (5.0-8.0)
[2022-11-20 18:11] LABS: Alanine Aminotransfer (ALT/SGP 77 U/L (12-78); Albumin/Globulin Ratio 0.7 (0.8-1.8); Alk Phos 193 U/L (50-136); Anion Gap 6 mmol/L (6-16); Aspartate Aminotrans (AST/SGOT 78 U/L (12-37); Bilirubin, Total 0.5 mg/dL (0.1-1.0); Blood Urea Nitrogen 34 mg/dL (8-24); Bun/Creatinine Ratio 29.3 (12.0-20.0); CO2, Blood 20 mmol/L (21-32); Chloride, Blood 116 mmol/L (98-108); Creatinine, Blood 1.16 mg/dL (0.60-1.20); Ethanol (Alcohol), Blood, Med <3 mg/dL; Globulin, Blood 4.1 g/dL (2.2-4.0); Glomerular Filtration Rate 67 (60-); Glucose, Blood 97 mg/dL (70-99); Potassium, Blood 4.2 mmol/L (3.5-5.5); Sodium, Blood 142 mmol/L (136-145); Total Protein, Blood 7.1 g/dL (6.4-8.2)
[2022-11-20 18:15] LABS: U Amphetamine Screen Not Detected; U Barbituate Screen Not Detected; U Benzodiazapine Screen Not Detected; U Buprenorphine Screen Not Detected; U Cannabinoids Screen DETECTED; U Cocaine Screen Not Detected; U Methadone Screen Not Detected; U Methamphetamine Screen Not Detected; U Opiates Screen Not Detected; U Oxycodone Screen Not Detected; U Phencyclidine Screen Not Detected; U Propoxyphene Screen Not Detected
[2022-11-20] MEDS ORDERED: Ventolin/Prove6.7 GM INH (20:28)
[2022-11-20] MEDS ORDERED: CONSTULOSE10 GM/155 PO (20:29)
--- NOTE | 2022-11-21 03:56 | NUR ---
SHIFT SUMMARY NOC ADMIT FROM ED WITH DX OF ACUTE HEPATIC ENEPHALOPATHY WITH AMS. REPORT FROM ED REPORTED PT BEING COMBATIVE AND NOT LETTING STAFF PROVIDE CARE, BUT NO ISSUES ARISED AFTER PT WAS ADMITTED TO MED FLOOR. PT HAS BEEN A/O X 4 WITH MOMENTS OF FORGETFULNESS BUT OTHERWISE PLEASANT AND COOPERATIVE WITH CARE. PT HAS IV ACCESS IN RFA AFTER MULTIPLE ATTEMPTS. PT HAS PROLIFIC SCARRING ON BUE DUE TO EXTENSIVE IV DRUG USE. ULTRASOUND WAS REQUIRED FOR IV PLACEMENT. PT IS ON TELE RUNNING SINUS RHTYHM @ 96 BPM. PT IS SBA DUE TO UNSTEADY GAIT. PT IS CONT X 2. PT HAD C/O OF PAIN IN ABD WHICH HE REPORTS CHRONIC. PT MEDICATED PER EMAR WHICH RELIEVED PAIN. PT IS CURRENTLY RESTING WITH BED ALARM ON, BED IN LOWEST POSITION, AND CALL LIGHT WITHIN REACH. WCTM.
[2022-11-21 05:17] LABS: BASOPHILS ABSOLUTE AUTO 0.05 K/mm3 (0.00-0.23); BASOPHILS PERCENT AUTO 1 % (0-2); EOSINOPHILS ABSOLUTE AUTO 0.16 K/mm3 (0.00-0.68); EOSINOPHILS PERCENT AUTO 3 % (0-6); Hematocrit 27.2 % (37.0-53.0); Hemoglobin 8.9 g/dL (13.5-17.5); IMMATURE GRAN ABSOLUTE AUTO 0.01 K/mm3 (0.00-0.10); IMMATURE GRAN PERCENT AUTO 0 % (0-1); LYMPHOCYTES ABSOLUTE AUTO 1.12 K/mm3 (0.84-5.20); LYMPHOCYTES PERCENT AUTO 23 % (21-46); MONOCYTES ABSOLUTE AUTO 0.72 K/mm3 (0.16-1.47); MONOCYTES PERCENT AUTO 15 % (4-13); Mean Corpuscular HGB 29.1 pg (26.0-34.0); Mean Corpuscular HGB Conc 32.7 g/dL (31.5-36.5); Mean Corpuscular Volume 89 fL (80-100); Mean Platelet Volume 10.6 fL (9.1-12.4); NEUTROPHILS ABSOLUTE AUTO 2.83 K/mm3 (1.96-9.15); NEUTROPHILS PERCENT AUTO 58 % (41-73); Platelet Count 152 K/mm3 (150-400); RDW Coefficient Variation 19.9 % (11.7-14.2); RDW Standard Deviation 65.1 fL (35.1-46.3); Red Blood Cell Count 3.06 M/mm3 (4.30-5.90); White Blood Cell Count 4.89 K/mm3 (4.00-11.30)
[2022-11-21 05:54] LABS: Albumin, Blood 2.4 g/dL (3.4-5.0); Albumin/Globulin Ratio 0.7 (0.8-1.8); Bilirubin, Total 0.5 mg/dL (0.1-1.0); Calcium, Blood 8.3 mg/dL (8.5-10.1); Creatinine, Blood 1.22 mg/dL (0.60-1.20); Globulin, Blood 3.5 g/dL (2.2-4.0); Potassium, Blood 3.8 mmol/L (3.5-5.5); Total Protein, Blood 5.9 g/dL (6.4-8.2)
--- NOTE | 2022-11-21 18:31 | NUR ---
SHIFT SUMMARY NO ACUTE CHANGES DURING SHIFT. PT ALERT AND ORIENTED, OCCASIONAL MOMENTS OF CONFUSION NOTED. FOLLOWS SIMPLE COMMANDS. CONTINUE LACTULOSE QID. AMMONIA LEVEL UP TO 84 FROM 75. PT OVERALL IMPROVED. PT REMAINS ON RA. INDEPENDENT TO BATHROOM. WILL CONTINUE TO MONITOR. CALL LIGHT WITHIN REACH.
[2022-11-22 05:06] LABS: BASOPHILS ABSOLUTE AUTO 0.04 K/mm3 (0.00-0.23); BASOPHILS PERCENT AUTO 1 % (0-2); EOSINOPHILS ABSOLUTE AUTO 0.17 K/mm3 (0.00-0.68); EOSINOPHILS PERCENT AUTO 4 % (0-6); Hematocrit 30.6 % (37.0-53.0); IMMATURE GRAN ABSOLUTE AUTO 0.01 K/mm3 (0.00-0.10); IMMATURE GRAN PERCENT AUTO 0 % (0-1); LYMPHOCYTES ABSOLUTE AUTO 1.35 K/mm3 (0.84-5.20); LYMPHOCYTES PERCENT AUTO 33 % (21-46); MONOCYTES ABSOLUTE AUTO 0.71 K/mm3 (0.16-1.47); MONOCYTES PERCENT AUTO 18 % (4-13); Mean Corpuscular HGB 28.7 pg (26.0-34.0); Mean Corpuscular HGB Conc 32.7 g/dL (31.5-36.5); Mean Corpuscular Volume 88 fL (80-100); Mean Platelet Volume 10.4 fL (9.1-12.4); NEUTROPHILS ABSOLUTE AUTO 1.76 K/mm3 (1.96-9.15); NEUTROPHILS PERCENT AUTO 44 % (41-73); Platelet Count 165 K/mm3 (150-400); RDW Coefficient Variation 20.2 % (11.7-14.2); RDW Standard Deviation 65.3 fL (35.1-46.3); Red Blood Cell Count 3.48 M/mm3 (4.30-5.90); White Blood Cell Count 4.04 K/mm3 (4.00-11.30)
[2022-11-22 05:41] LABS: Albumin, Blood 2.6 g/dL (3.4-5.0); Albumin/Globulin Ratio 0.7 (0.8-1.8); Bilirubin, Total 0.9 mg/dL (0.1-1.0); Bun/Creatinine Ratio 17.9 (12.0-20.0); Calcium, Blood 8.5 mg/dL (8.5-10.1); Creatinine, Blood 1.17 mg/dL (0.60-1.20); Globulin, Blood 3.7 g/dL (2.2-4.0); Potassium, Blood 3.8 mmol/L (3.5-5.5); Total Protein, Blood 6.3 g/dL (6.4-8.2)
--- NOTE | 2022-11-22 07:16 | NUR ---
PAYROLL TAX SPECIALIST SUMMARY: A&Ox2-3. LOTS OF CONFUSION DURING THE NIGHT. BED ALARM HE HAS BEEN INDEPENDENT IN ROOM DURING DAY BUT GAIT WAS ATAXIC DURING THE NIGHT. C/O 10+ ABD PAIN. UNABLE TO COMPLETE LACTULOSE DOSAGE LAST NIGHT AND DECLINED LOVENOX INJECTION D/T FEAR OF PAIN. DIFFICULT TO AROUSE AT TIMES AND TO DIRECT TOWARD COMPLYING WITH CARE. LABS DRAWN THIS AM; NO CRITICAL VALUES RECEIVED. WILL REPORT TO ONCOMING RN.
--- NOTE | 2022-11-22 17:15 | NUR ---
SHIFT SUMMARY PT A&OX3-4, MOOD UP AND DOWN T/O SHIFT. PT C/O ABD PAIN-RN MEDICATED PER EMAR. PT C/O CONSTIPATION, SUPPOSITORY, LACTULOSE, AND LAXITIVE ADMINISTERED THIS SHIFT. NPO @ THIS TIME FOR ORDERED ABD ULTRASOUND. CALL LIGHT W/IN REACH. BED ALARM IN PLACE. FAMILY IN TO SEE PT DURING VISITING HOURS. WAITING FOR AMONIA LEVEL TO LOWER BEFORE DC.
--- NOTE | 2022-11-22 18:23 | NUR ---
DR INFANTE NOTIFIED MIN BM AFTER 3X DOSE OF LACTULOSE, SUPPOSITORY, AND LAXITIVE. PT NPO @ THIS TIME FOR ORDERED ABD ULTRASOUND. INCREASE IN CONFUSION, PLAN TO MOVE PT TO BACK LION FOR CLOSER OBS. REPORTS SEEING GIANT BUG AT THIS TIME.
[2022-11-23 05:10] LABS: BASOPHILS ABSOLUTE AUTO 0.04 K/mm3 (0.00-0.23); BASOPHILS PERCENT AUTO 1 % (0-2); EOSINOPHILS ABSOLUTE AUTO 0.16 K/mm3 (0.00-0.68); EOSINOPHILS PERCENT AUTO 3 % (0-6); Hematocrit 31.6 % (37.0-53.0); Hemoglobin 10.4 g/dL (13.5-17.5); IMMATURE GRAN ABSOLUTE AUTO 0.01 K/mm3 (0.00-0.10); IMMATURE GRAN PERCENT AUTO 0 % (0-1); LYMPHOCYTES PERCENT AUTO 34 % (21-46); MONOCYTES ABSOLUTE AUTO 0.83 K/mm3 (0.16-1.47); MONOCYTES PERCENT AUTO 18 % (4-13); Mean Corpuscular HGB 28.6 pg (26.0-34.0); Mean Corpuscular HGB Conc 32.9 g/dL (31.5-36.5); Mean Corpuscular Volume 87 fL (80-100); Mean Platelet Volume 10.4 fL (9.1-12.4); NEUTROPHILS ABSOLUTE AUTO 2.08 K/mm3 (1.96-9.15); NEUTROPHILS PERCENT AUTO 44 % (41-73); Platelet Count 165 K/mm3 (150-400); RDW Coefficient Variation 20.3 % (11.7-14.2); RDW Standard Deviation 64.6 fL (35.1-46.3); Red Blood Cell Count 3.64 M/mm3 (4.30-5.90); White Blood Cell Count 4.72 K/mm3 (4.00-11.30)
[2022-11-23 05:52] LABS: Albumin, Blood 2.5 g/dL (3.4-5.0); Albumin/Globulin Ratio 0.6 (0.8-1.8); Bilirubin, Total 0.7 mg/dL (0.1-1.0); Bun/Creatinine Ratio 20.6 (12.0-20.0); Calcium, Blood 8.5 mg/dL (8.5-10.1); Creatinine, Blood 1.26 mg/dL (0.60-1.20); Globulin, Blood 3.9 g/dL (2.2-4.0); Potassium, Blood 3.7 mmol/L (3.5-5.5); Total Protein, Blood 6.4 g/dL (6.4-8.2)
--- NOTE | 2022-11-23 07:13 | NUR ---
END OF SHIFT NURSING REPORT Presented to the ED with altered mental status and admitted for hepatic encephalopathy with elevated Ammonia level 105 this AM. He has been complaining of sharp pain to mid-upper abdominal area and medicated with fentanyl q4hrs PRN. He is AOX4, and communicates with low volume. X1 assist to the bathroom
--- NOTE | 2022-11-23 20:16 | NUR ---
SHIFT SUMMARY- PT IS A/O, PLEASANT AND COOPERATVE. HE IS EATING AND DRINKING WELL. REQUESTING PAIN MEDICATIONS NEEDED. HE SLEPT FOR MUCH OF THIS SHIFT. WAS UP FOR MEALS. HE IS TAKING LACTULOSE. HE DID NOT HAVE A BM DURING THIS SHIFT. HIS BED IS IN THE LOW POSITON AND CALL LIGHT IS WITHIN REACH.
[2022-11-24 05:22] LABS: BASOPHILS ABSOLUTE AUTO 0.02 K/mm3 (0.00-0.23); BASOPHILS PERCENT AUTO 0 % (0-2); EOSINOPHILS PERCENT AUTO 2 % (0-6); Hematocrit 31.6 % (37.0-53.0); Hemoglobin 10.6 g/dL (13.5-17.5); IMMATURE GRAN ABSOLUTE AUTO 0.01 K/mm3 (0.00-0.10); IMMATURE GRAN PERCENT AUTO 0 % (0-1); LYMPHOCYTES PERCENT AUTO 27 % (21-46); MONOCYTES ABSOLUTE AUTO 0.58 K/mm3 (0.16-1.47); MONOCYTES PERCENT AUTO 13 % (4-13); Mean Corpuscular HGB 28.9 pg (26.0-34.0); Mean Corpuscular HGB Conc 33.5 g/dL (31.5-36.5); Mean Corpuscular Volume 86 fL (80-100); Mean Platelet Volume 10.1 fL (9.1-12.4); NEUTROPHILS ABSOLUTE AUTO 2.55 K/mm3 (1.96-9.15); NEUTROPHILS PERCENT AUTO 57 % (41-73); Platelet Count 160 K/mm3 (150-400); RDW Coefficient Variation 19.8 % (11.7-14.2); Red Blood Cell Count 3.67 M/mm3 (4.30-5.90); White Blood Cell Count 4.46 K/mm3 (4.00-11.30)
[2022-11-24 05:47] LABS: Albumin, Blood 2.5 g/dL (3.4-5.0); Albumin/Globulin Ratio 0.6 (0.8-1.8); Bilirubin, Total 0.7 mg/dL (0.1-1.0); Bun/Creatinine Ratio 17.7 (12.0-20.0); Calcium, Blood 8.7 mg/dL (8.5-10.1); Creatinine, Blood 1.47 mg/dL (0.60-1.20); Globulin, Blood 3.9 g/dL (2.2-4.0); Total Protein, Blood 6.4 g/dL (6.4-8.2)
--- NOTE | 2022-11-24 07:31 | NUR ---
Shift Summary Pt and SHIP ENGINEER reported at least 3 loose stools in the last 24 hours, held nightly dose of lactulose. C/O pain in middle upper abdominal area and headache, given Fentanyl Q4 PRN. SBA to ANABEL. [place], [place], communicates slowly and has trouble finding words but he is able to convey his message given enough time. Took a shower, VSS, pleasant and cooperative. Slept well through much of the night.
--- NOTE | 2022-11-24 16:27 | NUR ---
SHIFT SUMMARY- PT VSS. PT C/O PAIN MEDICATED PER EMAR. APPETITE GOOD. NO N/V DIARRHEA THIS SHIFT. PT COOPERATIVE WITH ALL CARE. WILL CONTINUE TO MONITOR. CALL LIGHT IN REACH.
--- NOTE | 2022-11-25 06:26 | NUR ---
Shift Summary Pt states he had 2 BM yesterday. SBA to the BR, steady on his feet. C/O severe head pain and upper abdominal pain, medicated per EMAR. BP was a bit soft this shift, around 100/60, pt states no light headedness or dizzyness. VSS, cooperative with care.
--- NOTE | 2022-11-25 18:45 | NUR ---
SHIFT SUMMARY PT A&O X 3. VSS. MEDICATED FOR C/O PAIN PER EMAR WITH GOOD RESULTS. APPETITE IS GOOD. IS STDBY ASSIST FOR RESTROOM USE. IS SOFT SPOKEN AND QUIET.
--- NOTE | 2022-11-26 04:00 | NUR ---
SHIFT UNREMARKABLE. PT TOOK 2100 MEDICATIONS WITHOUT DIFFICULTY THEN SLEPT THROUGH REMAINDER OF SHIFT. AOX2, FORGETFUL, AND PLEASANTLY CONFUSED. COOPERATIVE WITH CARE. CALL LIGHT LEFT WITHIN REACH.
[2022-11-26 04:43] LABS: BASOPHILS ABSOLUTE AUTO 0.04 K/mm3 (0.00-0.23); BASOPHILS PERCENT AUTO 1 % (0-2); EOSINOPHILS ABSOLUTE AUTO 0.18 K/mm3 (0.00-0.68); EOSINOPHILS PERCENT AUTO 3 % (0-6); Hematocrit 34.2 % (37.0-53.0); Hemoglobin 11.1 g/dL (13.5-17.5); IMMATURE GRAN ABSOLUTE AUTO 0.01 K/mm3 (0.00-0.10); IMMATURE GRAN PERCENT AUTO 0 % (0-1); LYMPHOCYTES ABSOLUTE AUTO 1.52 K/mm3 (0.84-5.20); LYMPHOCYTES PERCENT AUTO 23 % (21-46); MONOCYTES ABSOLUTE AUTO 0.69 K/mm3 (0.16-1.47); MONOCYTES PERCENT AUTO 11 % (4-13); Mean Corpuscular HGB 28.2 pg (26.0-34.0); Mean Corpuscular HGB Conc 32.5 g/dL (31.5-36.5); Mean Corpuscular Volume 87 fL (80-100); Mean Platelet Volume 10.2 fL (9.1-12.4); NEUTROPHILS ABSOLUTE AUTO 4.11 K/mm3 (1.96-9.15); NEUTROPHILS PERCENT AUTO 63 % (41-73); Platelet Count 171 K/mm3 (150-400); RDW Coefficient Variation 19.9 % (11.7-14.2); RDW Standard Deviation 63.7 fL (35.1-46.3); Red Blood Cell Count 3.93 M/mm3 (4.30-5.90); White Blood Cell Count 6.55 K/mm3 (4.00-11.30)
[2022-11-26 05:05] LABS: Albumin, Blood 2.7 g/dL (3.4-5.0); Albumin/Globulin Ratio 0.6 (0.8-1.8); Bilirubin, Total 0.7 mg/dL (0.1-1.0); Bun/Creatinine Ratio 21.1 (12.0-20.0); Calcium, Blood 8.9 mg/dL (8.5-10.1); Creatinine, Blood 1.52 mg/dL (0.60-1.20); Globulin, Blood 4.2 g/dL (2.2-4.0); Potassium, Blood 4.1 mmol/L (3.5-5.5); Total Protein, Blood 6.9 g/dL (6.4-8.2)
--- NOTE | 2022-11-27 03:26 | NUR ---
PATENT AGENT SUMMARY NO ACUTE EVENTS THROUGHOUT THE NIGHT. A&OX~2. PATIENT EFFECTIVELY COMMUNICATES NEEDS. INTERMITTENT EPISODES OF AGITATION. VSS. RR EVEN AND UNLABORED ON RA. PAIN ASSESSED AND MEDICATED PER EMAR. PATIENT EXPRESSES AWARENESS OF PAIN MEDICATION ADMINISTRATION AND SCHEDULE BUT ASKS FOR PAIN MEDICATION WITHIN 10 MINUTES POST-ADMINISTRATION. BED LOW AND LOCKED. CALL LIGHT WITHIN REACH. WILL CONTINUE TO MONITOR.
--- NOTE | 2022-11-27 18:25 | NUR ---
PT AAOX1 THIS SHIFT. PT IS VERY FORGETFUL. PT'S PAIN IS NOT WELL CONTROLLED WITH CURRENT MEDICATION REGIMEN. LONG ACTING PAIN MEDICATION NEEDED. RN TO DISCUSS WITH PALLIATIVE TOMORROW. CALLS APPROPRIATELY.
--- NOTE | 2022-11-28 04:38 | NUR ---
SYSTEMS PROTECTION TECHNICIAN SUMMARY NO ACUTE EVENTS THROUGHOUT THE NIGHT. A&OX~2. PATIENT EFFECTIVELY COMMUNICATES NEEDS. VSS. RR EVEN AND UNLABORED ON RA. PAIN MEDICATED PER EMAR. BED LOW AND LOCKED. CALL LIGHT WITHIN REACH. WILL CONTINUE TO MONITOR.
[2022-11-28 05:23] LABS: BASOPHILS ABSOLUTE AUTO 0.04 K/mm3 (0.00-0.23); BASOPHILS PERCENT AUTO 1 % (0-2); EOSINOPHILS ABSOLUTE AUTO 0.31 K/mm3 (0.00-0.68); EOSINOPHILS PERCENT AUTO 6 % (0-6); Hematocrit 30.6 % (37.0-53.0); IMMATURE GRAN ABSOLUTE AUTO 0.02 K/mm3 (0.00-0.10); IMMATURE GRAN PERCENT AUTO 0 % (0-1); LYMPHOCYTES ABSOLUTE AUTO 1.26 K/mm3 (0.84-5.20); LYMPHOCYTES PERCENT AUTO 24 % (21-46); MONOCYTES ABSOLUTE AUTO 0.87 K/mm3 (0.16-1.47); MONOCYTES PERCENT AUTO 17 % (4-13); Mean Corpuscular HGB 28.4 pg (26.0-34.0); Mean Corpuscular HGB Conc 32.7 g/dL (31.5-36.5); Mean Corpuscular Volume 87 fL (80-100); Mean Platelet Volume 10.6 fL (9.1-12.4); NEUTROPHILS ABSOLUTE AUTO 2.73 K/mm3 (1.96-9.15); NEUTROPHILS PERCENT AUTO 52 % (41-73); Platelet Count 141 K/mm3 (150-400); RDW Standard Deviation 64.1 fL (35.1-46.3); Red Blood Cell Count 3.52 M/mm3 (4.30-5.90); White Blood Cell Count 5.23 K/mm3 (4.00-11.30)
[2022-11-28 05:49] LABS: International Normalized Ratio 1.09; Prothrombin Time Results 11.4 Sec (9.7-11.5)
[2022-11-28 05:57] LABS: Albumin, Blood 2.4 g/dL (3.4-5.0); Albumin/Globulin Ratio 0.6 (0.8-1.8); Bilirubin, Total 0.6 mg/dL (0.1-1.0); Calcium, Blood 8.5 mg/dL (8.5-10.1); Creatinine, Blood 1.4 mg/dL (0.60-1.20); Globulin, Blood 3.9 g/dL (2.2-4.0); Phosphorus, Blood 2.7 mg/dL (2.5-4.9); Total Protein, Blood 6.3 g/dL (6.4-8.2)
[2022-11-28] MEDS ORDERED: Enulose10 GM/15 M PO (11:44)
--- NOTE | 2022-11-28 12:45 | NUR ---
PT LEFT IN WC BROUGHT DOWN BY RN WITH BROTHER AND SISTER IN LAW. PT LEFT WITH ALL BELONGINGS. PT LEFT WITH IV IN RIGHT FOREARM. RN CALLED [facility] AND REPORTED TO ROBBIE, SUPERVISOR PACKING ROOM OF IV. ROBBIE STATED [facility] WILL REMOVE WHEN THEY MAKE A HOUSE VISIT TODAY AND MEET THE PATIENT AT THEIR HOME.
== END 2022-11-28 12:06 | disposition hospice, home (50) | DRG 442 ==
LOC: ER 15:17 → MEDS 20:08 → ER 20:08 → MEDS 22:10 → ER 11-22 14:26 → MEDS 11-22 15:53
PROVIDERS: Emergency Medicine; Family Medicine; Hospitalist; Internal Medicine; ADMIT Internal Medicine
DX: K76.82 Hepatic encephalopathy (principal); C22.0 Liver cell carcinoma; R18.8 Other ascites; K76.6 Portal hypertension; K74.60 Unspecified cirrhosis of liver; K26.9 Duodenal ulcer, unspecified as acute or chronic, without hemorrhage or perforation; B18.2 Chronic viral hepatitis C; J44.9 Chronic obstructive pulmonary disease, unspecified; H91.90 Unspecified hearing loss, unspecified ear; F12.10 Cannabis abuse, uncomplicated; F17.210 Nicotine dependence, cigarettes, uncomplicated; Z79.899 Other long term (current) drug therapy; Z79.01 Long term (current) use of anticoagulants; Z87.09 Personal history of other diseases of the respiratory system; Z79.51 Long term (current) use of inhaled steroids
CPT/HCPCS: 36415; 70450; 74170; 76700; 80053; 81003; 82140; 82947; 83735; 84100; 84443; 85025; 85610; 93005; 93010; 94760; 96372; 96374; 96376; 97161; 97165; 99285-25; A9270; G0378; G0480; J1650; J3010; J7030; Q9967

== ENCOUNTER 2022-12-02 06:16 | Inpatient (IN) | payer OTHER ==
[~2022-12-02] VITALS: Ht 188 cm; Wt 53.3 kg
[~2022-12-02 06:16] MED LIST changes: -ALDACTONE100 MG PO; +CONSTULOSE10 GM/155 PO; +Enulose10 GM/15 M PO; +SPIR50 PO; +Ventolin/Prove6.7 GM INH
--- NOTE | 2022-12-02 15:13 | NUR ---
Spoke to pt's sister Tami at 1500. She reports the pt has been staying at both her and their sister Mary Jane's house since returning home from the hospital. Mary Jane called Tami around 0300 this morning, stating he had been up the entire night, urinating on her bed, on her floor, and not following any commands. Mary Jane also reported to Tami she felt "scared of Kalia, afraid of what he might do". They ended up calling 911, and pt was taken back to the hospital via ambulance. He is currently in soft restraints due to "agitation and aggression". According to pt's sister Mary Jane and sister in law Tami, pt cannot return to either of their homes. They state they don't have the resources to care for the pt. Pt does have [facility] insurance, and he may be a candidate for hospice at either [facility] or [facility]. Discussed with Jose G, Fruit Sorter and bedside RN. Pt could benefit from admission with Comfort Care until placement can be situated.
--- NOTE | 2022-12-02 21:00 | NUR ---
ADMISSION REPORT RECIEVED FROM ED NURSE. PATIENT ARRIVES TO PCU 08 WITH ED NURSE AND TECH FOR ASSISTANCE TRANSFERRING PATIENT. PER REPORT, PATIENT WAS AGITATED AND COMBATIVE AND REQUIRED 1:1 SITTER IN ROOM. PATIENT SITTING UP ON ED GURNEY WITH EYES CLOSED. PATIENT SLID OVER TO PCU BED WITH ASSISTANCE OF ED AND PCU STAFF. PATIENT MUSCLES STIFF WHILE HE SITS UP IN PCU BED. TRACK FITTER CALLED HOSPITALIST REGARDING PATIENT'S STATUS. PATIENT ADMITTED FOR COMFORT CARE D/T CURRENT [facility] PATIENT. COMFORT CARE ORDERS RECIEVED. NO IV ACCESS UPON ADMISSION BUT TRACK FITTER WAS ABLE TO PLACE IV TO LEFT OUTER FOREARM IN ORDER FOR PATIENT TO RECIEVE COMFORT CARE MEDICATIONS. PATIENT COMBATIVE DURING IV INSERTION. MULTIPLE STAFF AT BEDSIDE FOR ASSISTANCE PATIENT IS STRONG. MEDICATED PER EMAR WITH ZYPREXA TO KEEP STAFF AND PATIENT SAFE. PATIENT RESTING COMFORTABLY WITH EYES CLOSED IN BED AT THIS TIME. CAMERA AND BED ALARM ON FOR SAFETY AND TO PROTECT LINES. MUSIC PLAYING FOR COMFORT, CALL LIGHT IN REACH.
--- NOTE | 2022-12-03 06:14 | NUR ---
SHIFT SUMMARY COMFORT CARE STATUS PATIENT LETHARGIC THROUGH THE NIGHT. MEDICATED PER EMAR FOR PAIN AND AGITATION. TURNED Q2. ATTEMDS IN PLACE WITH INCONTINENT VOIDS AND 1 BM THIS SHIFT. WILL REPORT TO DAY SHIFT RN.
--- NOTE | 2022-12-03 15:46 | NUR ---
Case conference with nursing and brief visit. Pt was sleeping at the time of my visit. He is severely cachectic, legs drawn up to one side and covers kicked off. RN reports pt calling out and striking out when awake. I did not wake him. No family at bedside currently.
--- NOTE | 2022-12-03 17:36 | NUR ---
PT TRANSFERRED TO 352 REPORT GIVEN TO CAROL TRACEY, ALL BELONGIGS SENT WITH THE PT, SISTER IN LAW JANUARY CALLED AND MADE AWARE OF THE TRANSFER. PT HAS BEEN RESTLESS IN BED MOST OF THE SHIFT MEDICATED WITH ATIVAN IV1-2MG TWICE TODAY, THEN ROXANOL 10MG PO 3X TODAY. PT HAD 2 BMS FOR THE SHIFT AND 3 INCONTINENT VOIDS. REPOSITIONED MULTIPLES TIMES PT LAYS SIDEWAYS IN BED. NO OTHER ISSUES ENCOUNTERED. WILL MONITOR
--- NOTE | 2022-12-03 19:41 | NUR ---
SHIFT SUMMARY PTN TRANSFER FROM PCU AT 1720, REPORT RECEIVED FROM CHRISTOPHER. COMFORT CARE/HOSPICE. PTN IS NONVERBAL, NOT ORIENTED, AMS. PTN WAS BROUGHT IN FOR COMBATIVE BEHAVIOR, BUT REPORTED TO BE CALM IN PCU. PTN IS BEING MEDICATED PER EMAR. PTN IS ON A REGULAR DIET, BUT IS NOT EATING MUCH AND FLUID INTAKE WITH ONLY SIPS. SISTER IS HIS PRIMARY CARE, AND PLAN MAY BE TO TRANSFER TO A SNF. PTN COMFORTABLE FOR REMAINDER OF SHIFT. CONTINUE TO MONITOR.
[2022-12-03] MEDS ORDERED: BENADRYL25 MG PO (20:06)
[2022-12-03] MEDS ORDERED: Woman's Laxative5 MG PO (20:07)
--- NOTE | 2022-12-04 04:29 | NUR ---
Summary: Patient on comfort care. Aox0, non verbal at this time. Meds given per emar. Patient not very resposive but still able to move around in bed. Repositioned frequently throughout night.
--- NOTE | 2022-12-04 14:50 | NUR ---
CASE CONF WITH BEDSIDE RN ABOUT MANAGING PT AGITATION. WE REVIEWED EMAR AND AVAILABLE MEDICATIONS TO MANAGE S/S. RECOMENDED TRYING ZYPREXA OR HALDOL BEFORE LORAZEPAM, ROXANOL AND FENTANLY. PT RECEIVED ZYPREXA PRIOR TO MY VISIT, WILL CONTINUE TO FOLLOW.
--- NOTE | 2022-12-04 17:13 | NUR ---
SHIFT SUMMARY PT NON VERBAL AND RESTING COMFORTABLY AT THE START OF THE SHIFT. THE DAY PROGRESSED, HE BECAME MORE AGITATED AND TRIED TO GET OUT OF BED MULTIPLE TIMES. STAFF HAD TO REPOSITION HIM CONSTANTLY. MEDICATIONS WERE GIVEN PER THE EMAR AND PALLIATIVE WAS CONSULTED. ZYPREXA WAS GIVEN IM AND IT APPEARED TO PROVIDE HIM SOME RELIEF. HE IS NOW RESTING COMFORTABLY AND SLEEPING. WILL REPORT TO ONCOMING NURSE.
--- NOTE | 2022-12-05 04:40 | NUR ---
Summary: Patient on comfort care. Aox0, non verbal at this time. Meds given per emar. Patient not very resposive but still able to move around in bed. Repositioned frequently throughout night. PRN haladol available if needed but patient was not combative overnight.
[2022-12-05 10:08] LABS: SARS-Cov-2 (COVID-19) PCR, MMC NEGATIVE (NEGATIVE)
[2022-12-05] MEDS ORDERED: FENTANYL IV (10:54)
[2022-12-05] MEDS ORDERED: LORA2L PO (10:55)
[2022-12-05] MEDS ORDERED: MORP20L SL (11:01)
--- NOTE | 2022-12-05 14:12 | NUR ---
CASE CONF WITH RN REPORTS HE IS DOING BETTER TODAY AND THRU THE NIGHT. PT LESS AGITATED AFTER USING ZYPREXA AND HALOPERIDOL. PT IS RESTING COMF IN ROOM AT THIS TIME AND PENDING DC TO [facility] THIS AFTERNOON.
--- NOTE | 2022-12-05 14:13 | NUR ---
DISCHARGE NOTE PT DISCHARGED TO [facility], PICKED UP BY [facility]. [facility] AT [facility]. REPORT WAS GIVEN TO KYUNG FISH. PERSONAL BELONGINGS WERE SENT WITH THE PT. PT'S SISTER WAS ALSO INFORMED, SHE CALLED JUST PRIOR TO THE TRANSPORT.
== END 2022-12-05 14:22 | disposition hospice, inpatient (51) | DRG 442 ==
LOC: ER 06:16 → PCU 06:17 → MEDS 12-03 16:05
PROVIDERS: Family Medicine; ADMIT Internal Medicine
DX: K76.82 Hepatic encephalopathy (principal); C22.0 Liver cell carcinoma; R64 Cachexia; Z68.1 Body mass index [BMI] 19.9 or less, adult; K74.60 Unspecified cirrhosis of liver; Z51.5 Encounter for palliative care; Z28.21 Immunization not carried out because of patient refusal; Z78.1 Physical restraint status; Z20.822 Contact with and (suspected) exposure to COVID-19; R45.1 Restlessness and agitation; B19.20 Unspecified viral hepatitis C without hepatic coma; J44.9 Chronic obstructive pulmonary disease, unspecified; F17.210 Nicotine dependence, cigarettes, uncomplicated; K80.20 Calculus of gallbladder without cholecystitis without obstruction; Z79.899 Other long term (current) drug therapy
CPT/HCPCS: 96372; 96375; 96376; 99285-25; A9270; G0378; J1630; J2060; J3010; U0004